=== PATIENT | female | born 1965 | race Caucasian/White ===

== ENCOUNTER 2022-04-29 12:10 | Emergency (ER) | payer OTHER, SELFPAY ==
[2022-04-29] VITALS (11 sets, daily range): BP systolic 126–140; BP diastolic 73–77; PULSE 53–72; RESP 16; TEMP 36.9; O2SAT 65–100; BMI 43.4
--- NOTE | 2022-04-29 13:00 | DI.CT.S_ITS ---
PROCEDURE: CT ABDOMEN PELVIS W CON INDICATIONS: left flank pain, diarrhea, hx priti, gastric bypass TECHNIQUE: After the administration of oral and IV contrast, axial sections were acquired from the lung bases to the pubic symphysis. Coronal and sagittal reformats were performed. For radiation dose reduction, the following was used: automated exposure control, adjustment of mA and/or kV according to patient size. COMPARISON: [facility], CT, ABD/PELVIS W/CON (PNL), 04/18/2012, 10:43. FINDINGS: Image quality: Excellent. Lung bases: Unremarkable. Heart: No significant findings. Clips within the right breast. Right breast skin thickening. ABDOMEN: Liver: No focal lesion. Gallbladder: Absent. Biliary ducts: Unremarkable. Pancreas: Unremarkable. Spleen: Unremarkable. Adrenal Glands: No nodule. Kidneys and Ureters: No hydronephrosis. Stomach and Bowel: Dimitri-en-Y gastric bypass. No small bowel obstruction. The appendix is not dilated. Peritoneum: No abnormal intraperitoneal fluid. No free air. Ventral Wall: No significant hernia. Abdominal Nodes: No retroperitoneal or mesenteric adenopathy by size criteria. Vessels: Aorta and inferior vena cava are normal in size. PELVIS: Pelvic Organs: Uterus is unremarkable. Bladder: Unremarkable. Pelvic Nodes: No enlarged lymph nodes. Miscellaneous: No inguinal hernias are seen. Bones: No suspicious lesion. IMPRESSION: 1. No acute abnormality is identified. No small bowel obstruction. No free fluid. 2. Post gastric bypass. Post cholecystectomy. 3. No hydronephrosis. Dictated by: Luis Hammer M.D. on 04/29/2022 at 14:39 Approved by: Luis Hammer M.D. on 04/29/2022 at 14:46
[2022-04-29] MEDS: LACTATED RINGERS 1,000 ML 1000 ML IV (13:46)
[2022-04-29 13:48] LABS: Add Manual Diff / Slide Review NO; Basophils Absolute Auto 0 /uL (0-100); Basophils Percent Auto 0.6 % (0-2); Eosinophils Absolute Auto 200 /uL (0-450); Eosinophils Percent Auto 3.1 % (2-4); Hematocrit 44.2 % (36-46); Lymphocytes Absolute Auto 1900 /uL (1100-4500); Lymphocytes Percent Auto 25.6 % (25-40); Mean Corpuscular Hemoglobin 26.6 PG (26-34); Mean Corpuscular Volume 78.2 fL (80-100); Monocytes Absolute Auto 500 /uL (0-900); Monocytes Percent Auto 6.4 % (3-14); Neutrophils Absolute Auto 4700 /uL (1500-7000); Neutrophils Percent Auto 64.3 % (50-75); Platelet Count 219 X10^3/uL (150-400); Red Blood Cell Count 5.65 X10^6/uL (4.0-5.2); Red Cell Distribution Width 15.5 % (11.6-14.8); White Blood Cell Count 7.3 X10^3/uL (4.5-11.0)
[2022-04-29] MEDS: ONDANSETRON 4 MG/2 ML INJ IV (13:56)
[2022-04-29] MEDS: KETOROLAC 30 MG/ML VIAL 15 MG IV (13:56)
[2022-04-29 14:02] LABS: Lactate (Lactic Acid) 0.7 mmol/L (0.7-2.1)
[2022-04-29 14:05] LABS: Alanine Aminotransferase 23 IU/L (<35); Albumin 4.3 g/dL (3.5-5.0); Albumin Globulin Ratio 1.2 (1.0-2.8); Alkaline Phosphatase 136 U/L (38-126); Aspartate Aminotransferase 30 IU/L (14-36); BUN Creatinine Ratio 12.8 (6-22); Bilirubin Total 0.7 mg/dL (0.2-1.3); Blood Urea Nitrogen 12 mg/dL (7-17); C-Reactive Protein Quant < 0.5 mg/dL (<1.0); Carbon Dioxide 28 mmol/L (22-32); Chloride 104 mmol/L (98-107); Estimated Glomerular Filt Rate > 60 mL/min (>60); Globulin 3.6 g/dL (1.7-4.1); Glucose 125 mg/dL (70-100); HEMOLYSIS < 15 (0-50); Potassium 3.4 mmol/L (3.4-5.1); Sodium 143 mmol/L (137-145); Total Protein 7.9 g/dL (6.3-8.2)
--- NOTE | 2022-04-29 14:07 | ED.ABDPAIN ---
HPI - Abdominal Pain <Bambi Busby, [facility] - Last Filed: 04/29/22 16:36> General Chief Complaint: Abdominal Pain Stated Complaint: Pain in Left Side and Back Time Seen by Provider: 04/29/22 12:51 History of Present Illness HPI narrative: This is a 56-year-old female who presents to the emergency department complaining of 1 week of left-sided flank pain, she states that she had urinary frequency and burning for a few days, took amoxicillin x3 tabs and a slightly got better but returned and now she has left-sided flank pain, states that she feels hot and cold and has also had nausea, vomiting, and diarrhea. She has a history of gastric bypass, cholecystectomy, states that she has been taking Excedrin for a migraine, and besides the amoxicillin no other medications. She states that she feels dizzy, has had more diarrhea than usual. She states it is watery, she denies any other recent antibiotics. She denies any travel, denies any blood in her stool. States that she thinks she has a urine infection which has gotten worse, denies any history of nephrolithiasis. Related Data Home Medications Medication Instructions Recorded Confirmed Fluticasone Propionate (FLONASE) 1 spray intranasal QDAY ##0 05/01/12 [TYLENOL WITH CODEINE] 300 mg PO Q4HP ##0 05/01/12 [VIT LEO D] 2,000 units PO QDAY ##0 05/01/12 albuterol sulfate 90 mcg/actuation 2 puff INH Q4H ##17 05/01/12 aerosol inhaler (Proventil HFA) beclomethasone dipropionate 80 2 puff INH BID #1 inh 05/01/12 mcg/actuation aerosol inhaler (Qvar) glipizide 5 mg tablet 5 mg PO BIDAC ##0 05/01/12 insulin glargine 100 unit/mL 114 unit SQ BID #10 mL 05/01/12 subcutaneous solution (Lantus U-100 Insulin) zolpidem 10 mg tablet 10 mg PO HS ##0 05/01/12 biotin 5 mg tablet PO ##0 08/30/16 ranitidine HCl 75 mg tablet PO QDAY ##0 08/30/16 tamoxifen 20 mg tablet PO QDAY ##0 01/17/17 venlafaxine 37.5 mg tablet PO QDAY ##0 08/30/16 Previous Rx's Medication Instructions Recorded cephalexin 500 mg capsule 500 mg PO TID 5 days #15 caps 04/29/22 diazepam 10 mg tablet 10 mg PO BEDTIME PRN sleep #14 tabs 04/29/22 ketorolac 10 mg tablet 10 mg PO TID PRN pain 5 days #20 04/29/22 tabs ondansetron 4 mg disintegrating 4 mg PO Q8H PRN nausea and 04/29/22 tablet vomiting #14 tabs Allergies Allergy/AdvReac Type Severity Reaction Status Date / Time lisinopril [LISINOPRIL] Allergy Severe FACIAL Unverified 11/22/17 12:11 SWELLING Sulfa (Sulfonamide Allergy Severe TONGUE AND Unverified 11/22/17 12:11 Antibiotics) THROAT [SULFA (SULFONAMIDE SWELLING ANTIBIOTICS)] metformin [METFORMIN] AdvReac Intermediate N/V, Unverified 11/22/17 12:11 DIARRHEA Review of Systems <ESAU Leiva - Last Filed: 04/29/22 16:36> Review of Systems Narrative: Review of systems is negative for acute abnormalities unless otherwise noted in HPI Patient History <ESAU Leiva - Last Filed: 04/29/22 16:36> Social History Smoking Status: Never smoker Smoking Status: Never smoker Exam <ESAU Leiva - Last Filed: 04/29/22 16:36> Narrative Exam Narrative: Reviewed vitals signs and nursing notes. General: cooperative, comfortable, in no acute distress, well groomed appears tired and is in pain HEENT: symmetrical facial expressions, moist mucous membranes, EOMI Cardiovascular: regular rate and rhythm, no peripheral edema, warm extremities Respiratory: normal effort, able to speak in complete sentences, without wheezing, stridor, or abnormal breath sounds. No retractions or tachypnea. GI: abdomen soft, nontender to palpation, nondistended, without masses, rebound tenderness or exquisite tenderness with exam. Left CVA tenderness to palpation. no tenderness to RUQ. MSK: moves all extremities, neurovascularly intact, no weakness, normal tone Skin: brisk capillary refill, without pallor or erythema Neuro: normal speech and cognition, A&O x3, ambulatory, clear speech Psych: mental status is grossly normal, congruent mood, normal affect, pleasant and cooperative Initial Vital Signs Initial Vital Signs: Vital Signs Pulse Rate 65 04/29/22 12:30 Pulse Oximetry 66 L 04/29/22 12:30 <Lee Morales DO - Last Filed: 04/29/22 16:44> Initial Vital Signs Initial Vital Signs: Vital Signs Pulse Rate 65 04/29/22 12:30 Pulse Oximetry 66 L 04/29/22 12:30 Course <ESAU Leiva - Last Filed: 04/29/22 16:36> Orders Ordered: ED Orders 04/29/22 13:00 CT abdomen pelvis w con Stat 04/29/22 13:35 CBC Auto Diff [Complete Blood Count AUTO DIFF] Stat CMP [Comprehensive Metabolic Panel] Stat CRP [C-Reactive Protein Quant] Stat Lactate (Lactic Acid) Stat Magnesium Stat Procalcitonin Stat 04/29/22 14:16 Blood Culture Stat 04/29/22 14:17 UA Complete [Urinalysis and Microscopic] Stat Urine Culture Stat 04/29/22 14:35 Covid-19 + FLU A/B + RSV - PCR Stat Discontinued Medications Lactated Ringer's (Lactated Ringers) 1,000 mls @ 1,000 mls/hr IV BOLUS ONE Stop: 04/29/22 13:59 Last Infusion: 04/29/22 15:45 Dose: 0 mls/hr Documented By: Admin: 04/29/22 13:46 Dose: 1,000 mls/hr Documented By: RB Ceftriaxone Sodium 1,000 mg/ (Sodium Chloride) 100 mls @ 200 mls/hr IV NOW ONE Stop: 04/29/22 15:06 Last Admin: 04/29/22 15:40 Dose: 200 mls/hr Documented By: RB Ketorolac Tromethamine (Ketorolac 30 Mg/Ml Vial) 15 mg IV NOW ONE Stop: 04/29/22 13:01 Last Admin: 04/29/22 13:56 Dose: 15 mg Documented By: RB Ondansetron HCl (Ondansetron 4 Mg/2 Ml Inj) 4 mg IV NOW ONE Stop: 04/29/22 13:01 Last Admin: 04/29/22 13:56 Dose: 4 mg Documented By: RB Vital Signs Vital signs: Vital Signs - 8 hr 04/29/22 12:32 04/29/22 12:30 04/29/22 12:31 Temperature 98.5 F Pulse Rate 61 65 Respiratory Rate 16 Blood Pressure 126/77 126/77 Pulse Oximetry 97 66 L Oxygen Delivery Method Room Air 04/29/22 12:31 04/29/22 13:54 04/29/22 13:55 Temperature Pulse Rate 63 72 Respiratory Rate Blood Pressure 140/73 Pulse Oximetry 91 65 L Oxygen Delivery Method 04/29/22 13:55 04/29/22 14:00 04/29/22 14:00 Temperature Pulse Rate 57 L 55 L Respiratory Rate Blood Pressure 138/75 Pulse Oximetry 98 100 Oxygen Delivery Method 04/29/22 14:30 04/29/22 15:00 Temperature Pulse Rate 56 L 56 L Respiratory Rate Blood Pressure Pulse Oximetry 85 L 99 Oxygen Delivery Method <Lee Morales, DO - Last Filed: 04/29/22 16:44> Orders Ordered: ED Orders 04/29/22 13:00 CT abdomen pelvis w con Stat 04/29/22 13:35 CBC Auto Diff [Complete Blood Count AUTO DIFF] Stat CMP [Comprehensive Metabolic Panel] Stat CRP [C-Reactive Protein Quant] Stat Lactate (Lactic Acid) Stat Magnesium Stat Procalcitonin Stat 04/29/22 14:16 Blood Culture Stat 04/29/22 14:17 UA Complete [Urinalysis and Microscopic] Stat Urine Culture Stat 04/29/22 14:35 Covid-19 + FLU A/B + RSV - PCR Stat Discontinued Medications Lactated Ringer's (Lactated Ringers) 1,000 mls @ 1,000 mls/hr IV BOLUS ONE Stop: 04/29/22 13:59 Last Infusion: 04/29/22 15:45 Dose: 0 mls/hr Documented By: Admin: 04/29/22 13:46 Dose: 1,000 mls/hr Documented By: RB Ceftriaxone Sodium 1,000 mg/ (Sodium Chloride) 100 mls @ 200 mls/hr IV NOW ONE Stop: 04/29/22 15:06 Last Admin: 04/29/22 15:40 Dose: 200 mls/hr Documented By: RB Ketorolac Tromethamine (Ketorolac 30 Mg/Ml Vial) 15 mg IV NOW ONE Stop: 04/29/22 13:01 Last Admin: 04/29/22 13:56 Dose: 15 mg Documented By: RB Ondansetron HCl (Ondansetron 4 Mg/2 Ml Inj) 4 mg IV NOW ONE Stop: 04/29/22 13:01 Last Admin: 04/29/22 13:56 Dose: 4 mg Documented By: RB Vital Signs Vital signs: Vital Signs - 8 hr 04/29/22 12:32 04/29/22 12:30 04/29/22 12:31 Temperature 98.5 F Pulse Rate 61 65 Respiratory Rate 16 Blood Pressure 126/77 126/77 Pulse Oximetry 97 66 L Oxygen Delivery Method Room Air 04/29/22 12:31 04/29/22 13:54 04/29/22 13:55 Temperature Pulse Rate 63 72 Respiratory Rate Blood Pressure 140/73 Pulse Oximetry 91 65 L Oxygen Delivery Method 04/29/22 13:55 04/29/22 14:00 04/29/22 14:00 Temperature Pulse Rate 57 L 55 L Respiratory Rate Blood Pressure 138/75 Pulse Oximetry 98 100 Oxygen Delivery Method 04/29/22 14:30 04/29/22 15:00 Temperature Pulse Rate 56 L 56 L Respiratory Rate Blood Pressure Pulse Oximetry 85 L 99 Oxygen Delivery Method MDM - Abdominal Pain <ESAU Leiva - Last Filed: 04/29/22 16:36> Lab Data Result diagrams: 04/29/22 13:35 04/29/22 13:35 Labs: Lab Results 04/29/22 04/29/22 04/29/22 Range/Units 13:35 13:35 13:35 WBC 7.3 (4.5-11.0) X10^3/uL RBC 5.65 H (4.0-5.2) X10^6/uL Hgb 15.0 (12.0-16.0) g/dL Hct 44.2 (36-46) % MCV 78.2 L (80-100) fL MCH 26.6 (26-34) PG MCHC 34.0 (30-36) % RDW 15.5 H (11.6-14.8) % Plt Count 219 (150-400) X10^3/uL Neut % (Auto) 64.3 (50-75) % Lymph % (Auto) 25.6 (25-40) % Prentiss % (Auto) 6.4 (3-14) % Eos % (Auto) 3.1 (2-4) % Baso % (Auto) 0.6 (0-2) % Neut # (Auto) 4700 (3834-0834) /uL Lymph # (Auto) 1900 (4315-1536) /uL Prentiss # (Auto) 500 (0-900) /uL Eos # (Auto) 200 (0-450) /uL Baso # (Auto) 0 (0-100) /uL Sodium 143 (137-145) mmol/L Potassium 3.4 (3.4-5.1) mmol/L Chloride 104 (98-107) mmol/L Carbon Dioxide 28 (22-32) mmol/L BUN 12 (7-17) mg/dL Creatinine 0.94 (0.52-1.04) mg/dL Estimated GFR > 60 (>60) mL/min BUN/Creatinine Ratio 12.8 (6-22) Glucose 125 H (70-100) mg/dL Lactate 0.7 (0.7-2.1) mmol/L Calcium 9.0 (8.4-10.2) mg/dL Magnesium 2.0 (1.6-2.3) mg/dL Total Bilirubin 0.7 (0.2-1.3) mg/dL AST 30 (14-36) IU/L ALT 23 (<35) IU/L Alkaline Phosphatase 136 H (38-126) U/L C-Reactive Protein < 0.5 (<1.0) mg/dL Total Protein 7.9 (6.3-8.2) g/dL Albumin 4.3 (3.5-5.0) g/dL Globulin 3.6 (1.7-4.1) g/dL Albumin/Globulin Ratio 1.2 (1.0-2.8) Procalcitonin 0.05 (<0.5) ng/mL Urine Color Urine Appearance Urine pH (4.5-8.0) Ur Specific [place] (1.000-1.035) Urine Protein (Negative) Urine Glucose (UA) (Negative) g/dL Urine Ketones (NEGATIVE) Urine Occult Blood (Negative) Urine Nitrate (Negative) Urine Bilirubin (NEGATIVE) Urine Urobilinogen (0.2) E.U./dL Ur Leukocyte Esterase (NEGATIVE) Urine RBC (0-5/HPF) Urine WBC (0-5/HPF) Ur Squamous Epith Cells (0-5/HPF) Urine Bacteria (None) Urine Yeast (None) Ur Culture Indicated? SARS-CoV-2 (PCR) (Negative) Influenza A (RT-PCR) (NEGATIVE) Influenza B (RT-PCR) (NEGATIVE) RSV (PCR) (Negative) 04/29/22 04/29/22 Range/Units 14:17 14:35 WBC (4.5-11.0) X10^3/uL RBC (4.0-5.2) X10^6/uL Hgb (12.0-16.0) g/dL Hct (36-46) % MCV (80-100) fL MCH (26-34) PG MCHC (30-36) % RDW (11.6-14.8) % Plt Count (150-400) X10^3/uL Neut % (Auto) (50-75) % Lymph % (Auto) (25-40) % Prentiss % (Auto) (3-14) % Eos % (Auto) (2-4) % Baso % (Auto) (0-2) % Neut # (Auto) (2034-2390) /uL Lymph # (Auto) (5618-3261) /uL Prentiss # (Auto) (0-900) /uL Eos # (Auto) (0-450) /uL Baso # (Auto) (0-100) /uL Sodium (137-145) mmol/L Potassium (3.4-5.1) mmol/L Chloride (98-107) mmol/L Carbon Dioxide (22-32) mmol/L BUN (7-17) mg/dL Creatinine (0.52-1.04) mg/dL Estimated GFR (>60) mL/min BUN/Creatinine Ratio (6-22) Glucose (70-100) mg/dL Lactate (0.7-2.1) mmol/L Calcium (8.4-10.2) mg/dL Magnesium (1.6-2.3) mg/dL Total Bilirubin (0.2-1.3) mg/dL AST (14-36) IU/L ALT (<35) IU/L Alkaline Phosphatase (38-126) U/L C-Reactive Protein (<1.0) mg/dL Total Protein (6.3-8.2) g/dL Albumin (3.5-5.0) g/dL Globulin (1.7-4.1) g/dL Albumin/Globulin Ratio (1.0-2.8) Procalcitonin (<0.5) ng/mL Urine Color Yellow Urine Appearance Clear Urine pH 5.0 (4.5-8.0) Ur Specific [place] <=1.005 (1.000-1.035) Urine Protein Negative (Negative) Urine Glucose (UA) 2+ H (Negative) g/dL Urine Ketones Negative (NEGATIVE) Urine Occult Blood Negative (Negative) Urine Nitrate Negative (Negative) Urine Bilirubin Negative (NEGATIVE) Urine Urobilinogen 0.2 (0.2) E.U./dL Ur Leukocyte Esterase Negative (NEGATIVE) Urine RBC 0-1/hpf (0-5/HPF) Urine WBC 0-1/hpf (0-5/HPF) Ur Squamous Epith Cells 1-5 /hpf (0-5/HPF) Urine Bacteria Occasional (0-1) (None) Urine Yeast 0-1/hpf (None) Ur Culture Indicated? Culture not indicate SARS-CoV-2 (PCR) Negative (Negative) Influenza A (RT-PCR) Flu a negative (NEGATIVE) Influenza B (RT-PCR) Flu b negative (NEGATIVE) RSV (PCR) Negative (Negative) Point of care testing: Urine Dip Bedside Urine Glucose 250 mg/dl Bedside Urine Bilirubin - Negative Bedside Urine Ketone - Negative Urine Specific Oxford 1.020 Bedside Urine Occult Blood - Negative Bedside Urine pH 6.0 Bedside Urine Protein - Negative Bedside Urine Urobilinogen - Negative Bedside Urine Nitrite - Negative Bedside Urine Leukocytes - Negative Esterase Imaging Data CT scan - abdomen/pelvis: Radiologist's Impression: PROCEDURE:? CT ABDOMEN PELVIS W CON ? INDICATIONS:? left flank pain, diarrhea, hx priti, gastric bypass ? TECHNIQUE:? After the administration of oral and IV contrast, axial sections were acquired from the lung bases to the pubic symphysis.? Coronal and sagittal reformats were performed.? For radiation dose reduction, the following was used:? automated exposure control, adjustment of mA and/or kV according to patient size. ? COMPARISON:? [facility], CT, ABD/PELVIS W/CON (PNL), 04/18/2012, 10:43. ? FINDINGS:? Image quality:? Excellent.? ? Lung bases:? Unremarkable.? ? Heart:? No significant findings.? Clips within the right breast.? Right breast skin thickening.? ? ? ABDOMEN: Liver:? No focal lesion.? ? Gallbladder:? Absent. Biliary ducts:? Unremarkable.? ? Pancreas:? Unremarkable.? ? Spleen:? Unremarkable.? ? Adrenal Glands:? No nodule. Kidneys and Ureters:? No hydronephrosis. ? Stomach and Bowel:? Dimitri-en-Y gastric bypass.? No small bowel obstruction.? The appendix is not dilated. Peritoneum:? No abnormal intraperitoneal fluid.? No free air.? ? Ventral Wall: ? No significant hernia.? Abdominal Nodes:? No retroperitoneal or mesenteric adenopathy by size criteria.? Vessels:? Aorta and inferior vena cava are normal in size.? ? PELVIS: Pelvic Organs:? Uterus is unremarkable.? ? Bladder:? Unremarkable.? ? Pelvic Nodes: No enlarged lymph nodes.? Miscellaneous: No inguinal hernias are seen. ? ? ? Bones:? No suspicious lesion. ? ? IMPRESSION:? 1. No acute abnormality is identified.? No small bowel obstruction.? No free fluid. ? 2. Post gastric bypass.? Post cholecystectomy. ? 3. No hydronephrosis. ? ? Dictated by: Luis Hammer M.D. on 04/29/2022 at 14:39 ? ? Approved by: Luis Hammer M.D. on 04/29/2022 at 14:46 ? MDM Narrative Medical decision making narrative: This is a 56-year-old female presents to the emergency department with left-sided flank pain over the last 1 week with prior history of Dimitri-en-Y gastric bypass, cholecystectomy. Patient states that she had urinary burning for 2 days and historically with a UTI she is had much greater symptoms. She states that she has had watery diarrhea, nausea and vomiting for the last 2 days. She states that she took 4 doses of amoxicillin which she had at home for prior history of diverticulitis which she states is in the right upper abdomen in her history. Palpation of her abdomen was nontender, without masses or exquisite tenderness, she did have left-sided CVA tenderness. Urine dip is negative, microscopy is negative for infection. No leukocytosis or anemia, no electrolyte abnormalities, alkaline phosphatase is mildly elevated at 136 up from prior in 2017 at 93, procalcitonin is 0.05, Patient received 1 L of lactated Ringer's, 15 mg of ketorolac, Zofran, and states this was helpful for her symptoms. She denies any fever, chills, cough, sore throat or chest pain. Her respiratory PCR was negative for RSV, influenza a and B, and COVID. CT abdomen and pelvis was negative for acute intra-abdominal abnormality other than previous Dimitri-en-Y procedure and cholecystectomy. No obstructive uropathy. Patient does not have any leukocytosis or anemia, creatinine is stable at 0.94, no electrolyte abnormalities, lactate of 0.7, CRP of 0.5, alkaline phosphatase is elevated today at 136 when compared with prior of 93 from 2017. Procalcitonin is 0.05, urine dip showed 2+ glucose, was negative for blood, leukocyte esterase, nitrates and other. This is most likely a UTI which progressed and potentially was suppressed by amoxicillin x4 doses. This could also be colitis, gastroenteritis, IBS, or a viral illness. Since patient's urine does not show bacteria but patient had clinical signs and symptoms of UTI, she was given 1 g of ceftriaxone in the emergency department, prescribed t.i.d. cephalexin for 5 days and encouraged to follow-up with her primary care provider for any worsening. She was given Toradol for pain, Zofran for nausea and vomiting, encouraged to rest, stay hydrated and follow up with her primary care provider. No peritoneal signs on abdominal exam. Patient remains p.o. tolerant. Serial abdominal exam without increase in abdominal pain. Given history and exam, low suspicion for acute abdominal process, such as acute pancreatitis, perforated viscus, atypical appendicitis, colitis, diverticulitis or torsion. Extensive conversation about ER return precautions and need for close follow-up. <Lee Morales, DO - Last Filed: 04/29/22 16:44> Lab Data Labs: Lab Results 04/29/22 04/29/22 04/29/22 Range/Units 13:35 13:35 13:35 WBC 7.3 (4.5-11.0) X10^3/uL RBC 5.65 H (4.0-5.2) X10^6/uL Hgb 15.0 (12.0-16.0) g/dL Hct 44.2 (36-46) % MCV 78.2 L (80-100) fL MCH 26.6 (26-34) PG MCHC 34.0 (30-36) % RDW 15.5 H (11.6-14.8) % Plt Count 219 (150-400) X10^3/uL Neut % (Auto) 64.3 (50-75) % Lymph % (Auto) 25.6 (25-40) % Prentiss % (Auto) 6.4 (3-14) % Eos % (Auto) 3.1 (2-4) % Baso % (Auto) 0.6 (0-2) % Neut # (Auto) 4700 (3703-4485) /uL Lymph # (Auto) 1900 (1773-2798) /uL Prentiss # (Auto) 500 (0-900) /uL Eos # (Auto) 200 (0-450) /uL Baso # (Auto) 0 (0-100) /uL Sodium 143 (137-145) mmol/L Potassium 3.4 (3.4-5.1) mmol/L Chloride 104 (98-107) mmol/L Carbon Dioxide 28 (22-32) mmol/L BUN 12 (7-17) mg/dL Creatinine 0.94 (0.52-1.04) mg/dL Estimated GFR > 60 (>60) mL/min BUN/Creatinine Ratio 12.8 (6-22) Glucose 125 H (70-100) mg/dL Lactate 0.7 (0.7-2.1) mmol/L Calcium 9.0 (8.4-10.2) mg/dL Magnesium 2.0 (1.6-2.3) mg/dL Total Bilirubin 0.7 (0.2-1.3) mg/dL AST 30 (14-36) IU/L ALT 23 (<35) IU/L Alkaline Phosphatase 136 H (38-126) U/L C-Reactive Protein < 0.5 (<1.0) mg/dL Total Protein 7.9 (6.3-8.2) g/dL Albumin 4.3 (3.5-5.0) g/dL Globulin 3.6 (1.7-4.1) g/dL Albumin/Globulin Ratio 1.2 (1.0-2.8) Procalcitonin 0.05 (<0.5) ng/mL Urine Color Urine Appearance Urine pH (4.5-8.0) Ur Specific [place] (1.000-1.035) Urine Protein (Negative) Urine Glucose (UA) (Negative) g/dL Urine Ketones (NEGATIVE) Urine Occult Blood (Negative) Urine Nitrate (Negative) Urine Bilirubin (NEGATIVE) Urine Urobilinogen (0.2) E.U./dL Ur Leukocyte Esterase (NEGATIVE) Urine RBC (0-5/HPF) Urine WBC (0-5/HPF) Ur Squamous Epith Cells (0-5/HPF) Urine Bacteria (None) Urine Yeast (None) Ur Culture Indicated? SARS-CoV-2 (PCR) (Negative) Influenza A (RT-PCR) (NEGATIVE) Influenza B (RT-PCR) (NEGATIVE) RSV (PCR) (Negative) 04/29/22 04/29/22 Range/Units 14:17 14:35 WBC (4.5-11.0) X10^3/uL RBC (4.0-5.2) X10^6/uL Hgb (12.0-16.0) g/dL Hct (36-46) % MCV (80-100) fL MCH (26-34) PG MCHC (30-36) % RDW (11.6-14.8) % Plt Count (150-400) X10^3/uL Neut % (Auto) (50-75) % Lymph % (Auto) (25-40) % Prentiss % (Auto) (3-14) % Eos % (Auto) (2-4) % Baso % (Auto) (0-2) % Neut # (Auto) (5804-5271) /uL Lymph # (Auto) (7331-4536) /uL Prentiss # (Auto) (0-900) /uL Eos # (Auto) (0-450) /uL Baso # (Auto) (0-100) /uL Sodium (137-145) mmol/L Potassium (3.4-5.1) mmol/L Chloride (98-107) mmol/L Carbon Dioxide (22-32) mmol/L BUN (7-17) mg/dL Creatinine (0.52-1.04) mg/dL Estimated GFR (>60) mL/min BUN/Creatinine Ratio (6-22) Glucose (70-100) mg/dL Lactate (0.7-2.1) mmol/L Calcium (8.4-10.2) mg/dL Magnesium (1.6-2.3) mg/dL Total Bilirubin (0.2-1.3) mg/dL AST (14-36) IU/L ALT (<35) IU/L Alkaline Phosphatase (38-126) U/L C-Reactive Protein (<1.0) mg/dL Total Protein (6.3-8.2) g/dL Albumin (3.5-5.0) g/dL Globulin (1.7-4.1) g/dL Albumin/Globulin Ratio (1.0-2.8) Procalcitonin (<0.5) ng/mL Urine Color Yellow Urine Appearance Clear Urine pH 5.0 (4.5-8.0) Ur Specific [place] <=1.005 (1.000-1.035) Urine Protein Negative (Negative) Urine Glucose (UA) 2+ H (Negative) g/dL Urine Ketones Negative (NEGATIVE) Urine Occult Blood Negative (Negative) Urine Nitrate Negative (Negative) Urine Bilirubin Negative (NEGATIVE) Urine Urobilinogen 0.2 (0.2) E.U./dL Ur Leukocyte Esterase Negative (NEGATIVE) Urine RBC 0-1/hpf (0-5/HPF) Urine WBC 0-1/hpf (0-5/HPF) Ur Squamous Epith Cells 1-5 /hpf (0-5/HPF) Urine Bacteria Occasional (0-1) (None) Urine Yeast 0-1/hpf (None) Ur Culture Indicated? Culture not indicate SARS-CoV-2 (PCR) Negative (Negative) Influenza A (RT-PCR) Flu a negative (NEGATIVE) Influenza B (RT-PCR) Flu b negative (NEGATIVE) RSV (PCR) Negative (Negative) Point of care testing: Urine Dip Bedside Urine Glucose 250 mg/dl Bedside Urine Bilirubin - Negative Bedside Urine Ketone - Negative Urine Specific [place] 1.020 Bedside Urine Occult Blood - Negative Bedside Urine pH 6.0 Bedside Urine Protein - Negative Bedside Urine Urobilinogen - Negative Bedside Urine Nitrite - Negative Bedside Urine Leukocytes - Negative Esterase Discharge Plan Departure Patient Disposition: Home Clinical Impression: Complicated urinary tract infection Instructions: DI for Viral Gastroenteritis -- Adult, DI for Urinary Tract Infection (UTI) Activity Restrictions/Additional Instructions: Rosa, thank you for coming in for evaluation today. Overall, your workup is reassuring that you do not have a big infection today and this could have been a urinary infection to start which progressed to left kidney. This could also be colitis from any trigger, a viral illness, dehydration, or stress. I think this is most likely a urine infection that got better with some amoxicillin. Please manage these antibiotics, stay hydrated, come back for any worsening of your symptoms. Try diazepam as needed for sleep, hopefully this helps. Use Toradol every 8 hours with some food in a little water for pain and inflammation, do not take any other anti-inflammatories with this. Come back for blood in your stool. Was nice to meet you and enjoy the weekend, happy birthday tomorrow and I encourage you to go get your nails done and keep an appointment for dinner, hopefully you will be feeling better by then. Please schedule a follow-up appointment with your primary care provider for follow-up next week. It might be worth mentioning that your alkaline phosphatase was mildly elevated today at 01:36 without any other abnormal lab results today. Your COVID, influenza a and B, RSV are all negative. Your CT does not show any bowel obstruction, free fluid in your abdomen or other acute abnormality in your stomach, bowel, kidneys, ureters, pancreas and other organs. There are no enlarged lymph nodes in your abdomen either. Thank you for coming in for evaluation, please focus on your hydration, I hope that you can sleep well this week. Please come back for any worsening. *What to do: *Please continue to take your regular medications as directed. [x] New medication prescriptions sent to your pharmacy: [[facility] ] [ ] New medication written as a paper prescription [ ] No new medications given *Please follow up with your primary care provider in 2-3 days, call for an appointment. Let them know you were seen in the Emergency Department and that we asked that you be seen for follow-up. We will electronically transmit a record of today's note if your PCP is in our system *If you do not have a primary care provider please contact [phone] to establish care with one of the [facility] primary care providers. *Return to Emergency Department if you should have any new, worsening, or concerning symptoms, such as [fever greater than 101F, chills, worsening pain, persistent vomiting or other bothersome symptoms]. Prescriptions: New cephalexin 500 mg capsule 500 mg PO TID 5 Days Qty: 15 0RF ondansetron 4 mg tablet,disintegrating 4 mg PO Q8H PRN (Reason: nausea and vomiting) Qty: 14 0RF ketorolac 10 mg tablet 10 mg PO TID PRN (Reason: pain) 5 Days Qty: 20 0RF diazepam 10 mg tablet 10 mg PO BEDTIME PRN (Reason: sleep) Qty: 14 0RF No Action zolpidem 10 MG tablet 10 mg PO HS Qty: 0 Fluticasone Propionate (FLONASE) 1 spray Intranasal QDAY Qty: 0 albuterol sulfate [Proventil HFA] 90 MCG/PUFF HFA aerosol inhaler 2 puff INH Q4H Qty: 17 [TYLENOL WITH CODEINE] 300 mg PO Q4HP Qty: 0 beclomethasone dipropionate [Qvar] 80 MCG/PUFF aerosol 2 puff INH BID Qty: 1 insulin glargine [Lantus U-100 Insulin] 100 UNIT/1 ML solution 114 unit SQ BID Qty: 10 [VIT LEO D] 2,000 units PO QDAY Qty: 0 glipizide 5 MG tablet 5 mg PO BIDAC Qty: 0 tamoxifen 20 mg tablet PO QDAY Qty: 0 biotin 5 mg tablet PO Qty: 0 ranitidine HCl 75 mg tablet PO QDAY Qty: 0 venlafaxine 37.5 mg tablet PO QDAY Qty: 0 Referrals: Zoë Brown DO [Primary Care Provider] - <Lee Morales DO - Last Filed: 04/29/22 16:44> Cosign ED Attending Cosignature Attestation: Dr Morales Co-Sign Statement: I was available for consultation during this patient's emergency department visit. This chart is signed by myself for administrative purposes only. I did not have direct contact with this patient during this visit. They were seen independently by the APC.
[2022-04-29 14:19] LABS: Procalcitonin 0.05 ng/mL (<0.5)
[2022-04-29 14:38] LABS: Appearance Urine UA CLEAR; Bilirubin Urine UA NEGATIVE (NEGATIVE); Color Urine UA YELLOW; Glucose Urine UA 2+ g/dL (Negative); Ketones Urine UA NEGATIVE (NEGATIVE); Leukocyte Esterase Urine UA NEGATIVE (NEGATIVE); Nitrite Urine UA NEGATIVE (Negative); Occult Blood Urine UA NEGATIVE (Negative); Protein Urine UA NEGATIVE (Negative); Specific Gravity Urine UA <=1.005 (1.000-1.035); Urobilinogen Urine UA 0.2 E.U./dL (0.2)
[2022-04-29 14:47] LABS: Bacteria Urine Occasional (0-1); RBC Urine 0-1/HPF (0-5/HPF); Squamous Epithelial Cell Urine 1-5 /HPF (0-5/HPF); WBC Urine 0-1/HPF (0-5/HPF)
[2022-04-29 15:24] LABS: Influenza A - CEPHEID Flu A NEGATIVE (NEGATIVE); Influenza B - CEPHEID Flu B NEGATIVE (NEGATIVE); Respiratory Syncytial Virus Negative (Negative)
[2022-04-29 15:27] LABS: COVID-19 CEPHEID PCR (VTM/NP) Negative (Negative)
[2022-04-29] MEDS: cefTRIAXone 1,000 MG in SODIUM CHLORIDE 0.9% 100 ML 200 MG IV (15:40)
== END 2022-04-29 17:06 | disposition home or self-care (01) ==
PROVIDERS: Emergency Provider Nurse Practitioner Critical Care Medicine; Family Provider Family Medicine; PCP Family Medicine
DX: N39.0 Urinary tract infection, site not specified (principal); R30.0 Dysuria; R11.2 Nausea with vomiting, unspecified; R19.7 Diarrhea, unspecified; R79.89 Other specified abnormal findings of blood chemistry; Z98.84 Bariatric surgery status
CPT/HCPCS: 0241U; 36415; 74177; 80053; 81001; 81003; 83605; 83735; 84145; 85025; 86140; 87040; 87086; 96361; 96365; 96375; 99284; J0696; J1885; J2405; Q9967

== ENCOUNTER → 2022-07-25 13:53 | Outpatient (CLI) | payer OTHER, SELFPAY ==
[2022-07-25 15:11] LABS: Influenza A - CEPHEID Flu A NEGATIVE (NEGATIVE); Influenza B - CEPHEID Flu B NEGATIVE (NEGATIVE); Respiratory Syncytial Virus Negative (Negative)
[2022-07-25 15:12] LABS: COVID-19 CEPHEID 4-PLEX PCR Negative (Negative)
== END ==
PROVIDERS: Family Provider Family Medicine; PCP Family Medicine; Visit Provider Nurse Practitioner Family
DX: R05.9 Cough, unspecified (principal); Z20.822 Contact with and (suspected) exposure to COVID-19
CPT/HCPCS: 0241U

== ENCOUNTER 2022-11-12 17:17 | Emergency (ER) | payer OTHER, SELFPAY ==
[2022-11-12 17:36] VITALS: BP 135/81; PULSE 70; RESP 18; TEMP 36.4; O2SAT 96; BMI 45.1
--- NOTE | 2022-11-12 17:59 | PC.NURSE ---
Pt reports fall in July in the ice. Ever since has been having pain in right arm and shoulder. Pain has increased in the past couple weeks without further injury. Fell asleep with an ice pack on her neck/shoulders last night. Today has redness and now blistering to the area. 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
--- NOTE | 2022-11-12 18:17 | ED_ITS ---
HPI - Skin/Abscess/Foreign Bdy <ESAU Spivey - Last Filed: 11/12/22 18:28> General Chief complaint: Skin/Abscess/Foreign Body Stated complaint: ice burn on back, neck and shoulder pain Time Seen by Provider: 11/12/22 18:00 Source: patient Mode of arrival: Ambulatory Limitations: no limitations History of Present Illness HPI narrative: 57-year-old female, never smoker, presents to emergency department with a second-degree burn to her upper back after falling asleep with an ice pack on her back yesterday. Patient woke up this morning with it painful and now has 2 blisters on it. Patient states that she was using the ice pack for her right shoulder pain that she is had ever since she fell in July of 2022. Patient has been using Tylenol, Aleve, hot and cold compresses for the discomfort. Patient has been using [id number] exercises such as wall crawls and arm swings but symptoms seem to be getting worse. Patient denies any numbness and tingling of her arm but reports it is becoming more difficult to raise her arm above her head. Related Data Home Medications Medication Instructions Recorded Confirmed Fluticasone Propionate (FLONASE) 1 spray intranasal QDAY ##0 05/01/12 07/25/22 [TYLENOL WITH CODEINE] 300 mg PO Q4HP ##0 05/01/12 07/25/22 [VIT LEO D] 2,000 units PO QDAY ##0 05/01/12 07/25/22 albuterol sulfate 90 mcg/actuation 2 puff INH Q4H ##17 05/01/12 07/25/22 aerosol inhaler (Proventil HFA) beclomethasone dipropionate 80 2 puff INH BID #1 inh 05/01/12 07/25/22 mcg/actuation aerosol inhaler (Qvar) glipizide 5 mg tablet 5 mg PO BIDAC ##0 05/01/12 07/25/22 insulin glargine 100 unit/mL 114 unit SQ BID #10 mL 05/01/12 07/25/22 subcutaneous solution (Lantus U-100 Insulin) zolpidem 10 mg tablet 10 mg PO HS ##0 05/01/12 07/25/22 biotin 5 mg tablet PO ##0 08/30/16 07/25/22 ranitidine HCl 75 mg tablet PO QDAY ##0 08/30/16 07/25/22 tamoxifen 20 mg tablet PO QDAY ##0 08/30/16 07/25/22 venlafaxine 37.5 mg tablet PO QDAY ##0 08/30/16 07/25/22 Previous Rx's Medication Instructions Recorded diazepam 10 mg tablet 10 mg PO BEDTIME PRN sleep #14 tabs 04/29/22 ondansetron 4 mg disintegrating 4 mg PO Q8H PRN nausea and 04/29/22 tablet vomiting #14 tabs benzonatate 100 mg capsule 100 mg PO BID PRN cough #20 caps 07/25/22 methocarbamol 500 mg tablet 500 mg PO TID PRN muscle pain #20 11/12/22 tabs silver sulfadiazine 1 % topical 1 applic topical BID PRN wound 11/12/22 cream (Silvadene) healing #20 grams Allergies Allergy/AdvReac Type Severity Reaction Status Date / Time lisinopril [LISINOPRIL] Allergy Severe FACIAL Verified 11/12/22 17:41 SWELLING Sulfa (Sulfonamide Allergy Severe TONGUE AND Verified 11/12/22 17:41 Antibiotics) THROAT [SULFA (SULFONAMIDE SWELLING ANTIBIOTICS)] metformin [METFORMIN] AdvReac Intermediate N/V, Verified 11/12/22 17:41 DIARRHEA Review of Systems <ESAU Spivey - Last Filed: 11/12/22 18:28> Review of Systems Narrative: Narrative: See HPI. GENERAL: Denies chills, fatigue, fever, sweats. HEENT: Denies sinus pain, ear pain, sore throat, difficulty swallowing, diz ziness. RESPIRATORY: Denies dyspnea, cough, wheezing, sputum. CARDIOVASCULAR: Denies chest pain, palpitations, edema. MSK: Denies weakness. Endorses right shoulder pain. SKIN: Denies rash, skin lesions, or pruritis. Endorses burn to midline upper back. NEUROLOGIC: Denies weakness, dizziness, headache, numbness, confusion. Patient History <ESAU Spivey - Last Filed: 11/12/22 18:28> Social History Smoking Status: Never smoker Smoking Status: Never smoker alcohol intake frequency: 0-2 drinks per day Substance Use Type: does not use Exam <ESAU Spivey - Last Filed: 11/12/22 18:28> Narrative Exam Narrative: Exam Narrative: GENERAL: This is a well-nourished, well-developed patient, in no acute distress. HEAD: Atraumatic. Normocephalic. EYES: No scleral icterus, injection or drainage. ENT: Nose without bleeding, purulent drainage. Airway patent. NECK: Trachea midline. No JVD or lymphadenopathy. Nontender. CARDIOVASCULAR: Regular rate and rhythm without murmurs, peripheral pulses intact, cap refill <2 sec. RESPIRATORY: Breath sounds equal and clear bilaterally. No wheezes, rales, or rhonchi. No cough. No increased respiratory effort. No accessory muscle use. MSK: Moves all extremities. Normal range of motion, no clubbing or edema. Neurovascularly intact. NEURO: A&O x 3. SKIN: Warm, dry, no rashes or lesions noted. 3 in x 3 in area on back of midline neck/upper back with redness and blistering consistent with a second- degree skin burn. SHOULDER: There is no swelling, bruising or asymmetry. There is no tenderness to palpation over the AC joint, coracoid or glenoid processes. There is no soft tissue tenderness to palpation. Right trapezius is taut. Sensation grossly intact. Active and passive range of motion is limited due to pain. Resistive strength intact. Range of motion of the elbow is normal. The contralateral shoulder exam is unremarkable. Initial Vital Signs Initial Vital Signs: Vital Signs Temperature 97.6 F 11/12/22 17:36 Pulse Rate 70 11/12/22 17:36 Respiratory Rate 18 11/12/22 17:36 Blood Pressure 135/81 11/12/22 17:36 Pulse Oximetry 96 11/12/22 17:36 Oxygen Delivery Method Room Air 11/12/22 17:36 Reviewed <Tereza Rick DO - Last Filed: 11/15/22 07:03> Initial Vital Signs Initial Vital Signs: Vital Signs Temperature 97.6 F 11/12/22 17:36 Pulse Rate 70 11/12/22 17:36 Respiratory Rate 18 11/12/22 17:36 Blood Pressure 135/81 11/12/22 17:36 Pulse Oximetry 96 11/12/22 17:36 Oxygen Delivery Method Room Air 11/12/22 17:36 Course <Lee SwansonESAU green - Last Filed: 11/12/22 18:28> Vital Signs Vital signs: Vital Signs - 8 hr 11/12/22 17:36 Temperature 97.6 F Pulse Rate 70 Respiratory Rate 18 Blood Pressure 135/81 Pulse Oximetry 96 Oxygen Delivery Method Room Air <Tereza DO [place] - Last Filed: 11/15/22 07:03> Vital Signs Vital signs: Vital Signs - 8 hr 11/12/22 17:36 Temperature 97.6 F Pulse Rate 70 Respiratory Rate 18 Blood Pressure 135/81 Pulse Oximetry 96 Oxygen Delivery Method Room Air MDM - Skin/Abscess/Foreign Bdy <ESAU Spivey - Last Filed: 11/12/22 18:28> Differential Diagnosis Differential diagnosis: Likely other (Second-degree skin burn, trapezius spasm) MDM Narrative Medical decision making narrative: 57-year-old female presents to the emergency department with a 3 in diameter second-degree burn on her midline upper back from falling asleep with a ice pack on her. Will send in a prescription for Silvadene cream. Patient had a fall injury over 3 months ago and has been having right shoulder issues ever since. Patient declined a x-ray of the shoulder. Evaluation revealed very taut trapezius muscle and recommended a muscle relaxer in addition to her hot or cold compresses, Tylenol or ibuprofen for discomfort. Will prescribe some methocarbamol. Strongly recommended patient see a massage therapist and follow up with family doctor for possible physical therapy. Patient verbalized understanding and was agreeable with course of action. Discharge Plan Departure Patient Disposition: Home Clinical Impression: Burn of skin, Muscle tightness Instructions: DI for Nieves Activity Restrictions/Additional Instructions: *You have been diagnosed with a second-degree burn on your back. We will treat this with silver Sulvadene cream to be applied daily. Additionally, you may take Tylenol or ibuprofen as needed for the discomfort. For your tight trapezius muscle tightness, I will treat with a muscle relaxer. Please continue doing the arm swings and wall crawls for your right shoulder mobility. I strongly recommend you see a massage therapist or follow up with your family doctor for possible referral to physical therapy for your shoulder. *What to do: *Please continue to take your regular medications as directed. [x ] New medication prescriptions sent to your pharmacy: [[facility]] [ ] New medication written as a paper prescription [ ] No new medications given *Please follow up with your primary care provider in 2-3 days, call for an appointment. Let them know you were seen in the Emergency Department and that we ask that you be seen in follow up. We will electronically transmit a record of today's note if your PCP is in our system *If you do not have a primary care provider please contact the [facility] Resource line at [phone]. They will ask some questions about your medical history and help get you set up with a doctor in the community. ? Return to ER if you should have any new, worsening or concerning symptoms, such as worsening pain, severe headache, confusion, chest pain, difficulty breathing, fever greater than 101 F, shaking chills, persistent vomiting to the point that you cannot drink fluids, or other new or worsening symptoms. Prescriptions: New methocarbamol 500 mg tablet 500 mg PO TID PRN (Reason: muscle pain) Qty: 20 0RF silver sulfadiazine [Silvadene] 1 % cream 1 applic topical BID PRN (Reason: wound healing) Qty: 20 0RF Rx Instructions: apply a 1.5 mm thickness No Action benzonatate 100 mg capsule 100 mg PO BID PRN (Reason: cough) Qty: 20 0RF zolpidem 10 MG tablet 10 mg PO HS Qty: 0 Fluticasone Propionate (FLONASE) 1 spray Intranasal QDAY Qty: 0 albuterol sulfate [Proventil HFA] 90 MCG/PUFF HFA aerosol inhaler 2 puff INH Q4H Qty: 17 [TYLENOL WITH CODEINE] 300 mg PO Q4HP Qty: 0 beclomethasone dipropionate [Qvar] 80 MCG/PUFF aerosol 2 puff INH BID Qty: 1 insulin glargine [Lantus U-100 Insulin] 100 UNIT/1 ML solution 114 unit SQ BID Qty: 10 [VIT LEO D] 2,000 units PO QDAY Qty: 0 glipizide 5 MG tablet 5 mg PO BIDAC Qty: 0 tamoxifen 20 mg tablet PO QDAY Qty: 0 biotin 5 mg tablet PO Qty: 0 ranitidine HCl 75 mg tablet PO QDAY Qty: 0 venlafaxine 37.5 mg tablet PO QDAY Qty: 0 ondansetron 4 mg tablet,disintegrating 4 mg PO Q8H PRN (Reason: nausea and vomiting) Qty: 14 0RF diazepam 10 mg tablet 10 mg PO BEDTIME PRN (Reason: sleep) Qty: 14 0RF Referrals: Zoë Jackson DO [Primary Care Provider] - Stand Alone Forms: Patient Portal/API <Tereza Rick DO - Last Filed: 11/15/22 07:03> Cosign ED Attending Roseanneature Attestation: I was immediately available in the department for consultation. Documentation has been reviewed.
== END 2022-11-12 18:21 | disposition home or self-care (01) ==
PROVIDERS: Emergency Provider Registered Nurse; Family Provider Family Medicine; PCP Family Medicine
DX: T21.23XA Burn of second degree of upper back, initial encounter (principal); X08.8XXA Exposure to other specified smoke, fire and flames, initial encounter
CPT/HCPCS: 99281